=== PATIENT | female | born 1980 | race Caucasian/White ===

== ENCOUNTER 2025-01-10 06:59 | Emergency (ER) | payer BC, SELFPAY ==
[2025-01-10 07:01] VITALS: BP 118/71
--- NOTE | 2025-01-10 07:26 | ED.GENMED ---
History of Present Illness
General
Chief Complaint: Abdominal Symptoms
Source: patient
Exam Limitations: none
Time Seen by Provider: 01/10/25 07:24
Nursing documentation reviewed up to this point in time: agreed with
History of Present Illness
History of Present Illness:
Note:
CHIEF COMPLAINT(S)
Nausea, abdominal discomfort, and anxiety.
HISTORY OF PRESENT ILLNESS
The patient is a 44-year-old female who has been experiencing nausea, abdominal cramping, and a lack of appetite since Saturday. She describes feeling a constant sensation of needing to vomit, although she has not actually vomited. She has also
experienced diarrhea throughout the week, which she initially managed with jetx-itx-xwgwwfe medications such as Imodium and Pepto-Bismol.
The patient recently began experiencing heightened anxiety, which she visited her primary care physician for. She was prescribed a low dose of escitalopram, which she started three days ago. Prior to starting the medication, she had been
experiencing symptoms of anxiety, including sensations of something being stuck in her lower abdomen and intermittent cramping. The patient describes feeling fatigued since starting the medication, despite her physician advising that this was
unlikely.
She reports her symptoms worsen in the morning, feeling particularly unwell and exasperated by her current condition. Additionally, she experienced a sudden wave of nausea after bending over, which did not result in vomiting.
The patient expresses frustration at the persistent symptoms despite attempts at self-care and use of tlco-vpw-bdxmeje medications. She describes her stool as loose, and despite efforts, has not felt relief from her nausea and headaches.
PAST MEDICAL HISTORY
Anxiety with recent initiation of escitalopram therapy.
PAST SURGICAL HISTORY
section. Colonoscopy and endoscopy performed two years ago due to gastrointestinal issues; results were normal.
SOCIAL HISTORY
Denies smoking or illicit drug use. Consumes alcohol infrequently and in moderate amounts.
MEDICATIONS
Currently taking escitalopram for anxiety, started three days ago.
REVIEW OF SYSTEMS
- Gastrointestinal: Nausea, abdominal cramping, reduced appetite, diarrhea described as loose stools.
- Neurological: Headache.
- General: Fatigue, altered sensation in the abdomen.
PHYSICAL EXAM
- Ear, Nose, and Tongue: Normal inspection.
- General: Afebrile, alert, and oriented times three.
- Cardiovascular: Heart sounds S1 and S2 present, no murmurs detected.
- Pulmonary: Unremarkable.
- Integumentary: Moist oral mucosa.
- Abdominal: No indication of diverticulitis or other acute surgical conditions;soft, nontender, nondistended
Nursing notes reviewed and vital signs reviewed.
PROBLEM LIST
Acute:
- Gastrointestinal symptoms: Nausea, diarrhea, abdominal cramping
- Anxiety with recent onset
- Reflux symptoms: burning sensation, frequent burping
PLAN
- Obtain laboratory tests to assess electrolytes and liver function.
- Conduct urinalysis.
- Administer intravenous fluids and collect samples if diarrhea presents.
- Consider differential diagnosis of viral gastroenteritis; monitor for any progression.
- Prescribe a proton pump inhibitor to manage possible reflux symptoms.
DIFFERENTIAL DIAGNOSIS
The Differential Diagnosis includes, in no particular order and is not limited to:
1. Gastroenteritis
2. Anxiety-induced gastrointestinal symptoms
3. Irritable bowel syndrome
4. Gastroesophageal reflux disease (GERD)
5. Medication side effects (escitalopram)
6. Peptic ulcer disease
7. Viral infection
8. Food-borne illness
9. Inflammatory bowel disease
10. Colitis
CARE-UPDATE
01/10/25 - 10:00
Stable lab results; abdomen is soft and non-tender. Discussed options of a CT scan versus deferring imaging until after the gastroenterology follow-up. Decision made not to proceed with a CT scan at this time. Patient assessed as stable for
discharge with a gastroenterology follow-up scheduled for Saturday. Prescriptions for Diltiazem and Protonix provided. Return precautions were communicated to the patient.
Disposition:
SUMMARY OF ENCOUNTER
The patient, a 44-year-old female, presented to the emergency department with nausea, abdominal discomfort, and heightened anxiety. She reported ongoing symptoms since Saturday, including nausea, abdominal cramping, reduced appetite, and diarrhea. The
patient recently began experiencing increased anxiety and started on a low-dose of escitalopram three days ago. After a complete evaluation, the symptoms were suspected to be related to possible viral gastroenteritis, anxiety-induced
gastrointestinal symptoms, and potential medication side effects.
DISPOSITION
The patient was assessed as stable for discharge with a follow-up appointment scheduled with a manager shift on Saturday.
ASSESSMENT
The patients gastrointestinal symptoms may be a result of viral gastroenteritis, side effects of recent medication initiation with escitalopram, and possible anxiety-induced gastrointestinal issues.
PLAN
Obtain laboratory tests to assess electrolytes and liver function. Conduct urinalysis. Prescribe a proton pump inhibitor to manage possible reflux symptoms. Monitor for any progression of symptoms.
FOLLOW-UP INSTRUCTIONS
Follow up with a gastroenterology appointment scheduled for Saturday. Return to the emergency department if symptoms worsen or new symptoms develop.
MEDICATION RECONCILIATION
The patient started escitalopram three days ago, and a proton pump inhibitor, pantoprazole (Protonix), was prescribed.
MEDICAL DECISION MAKING
- Number and Complexity of Problems Addressed: Chronic conditions affecting care [Anxiety with recent initiation of escitalopram therapy, gastrointestinal symptoms]. The differential diagnosis list includes gastroenteritis, anxiety-induced
gastrointestinal symptoms, irritable bowel syndrome, gastroesophageal reflux disease, medication side effects, peptic ulcer disease, viral infection, food-borne illness, inflammatory bowel disease, and colitis.
- Data:
Category 1:
- Non-emergency department records reviewed.
- Lab tests ordered included electrolytes and liver function assessments along with urinalysis.
Category 3:
- Discussion of management with a manager shift resulting in a follow-up appointment for the patient.
- Risk: Prescription medication was prescribed in the form of Protonix for reflux management.
DIAGNOSIS
- Nausea (R11.0)
- Diarrhea (R19.7)
Past History
Past History
ED Past Medical History: None
ED Past Surgical History: (x3)
Social History
Tobacco: Non-smoker
Alcohol: Occasional
Drug: None
Phy Exam
Physical Exam
Physical Exam:
.
Course
Orders/Labs/Results
Orders:
Orders
01/10/25 07:43
IV Insert/Care/Rem.- Treatment PRN
Stool Culture Urgent
GUERA Source: Feces/Stool
Specimen Description:
Pantoprazole [Protonix IV] 40 mg IV NOW STA
01/10/25 07:44
Test Result ONCE
01/10/25 08:05
Complete Blood Count/With Diff Urgent
Comprehensive Metabolic Panel Urgent
Lipase Urgent
01/10/25 08:08
HCG, Urine Qualitative Screen Urgent
Date Specimen was Collected: 01/10/25
Time Specimen was Collected: 08:06
Urinalysis Reflex To Culture Urgent
Date Specimen was Collected: 01/10/25
Time Specimen was Collected: 08:06
Abnormal Lab Results
01/10/25
08:05
WBC 3.1 L 10^3/uL
(4.8-10.8)
RBC 3.43 L 10^6/uL
(4.20-5.40)
Hgb 10.3 L g/dL
(12.0-16.0)
Hct 31.3 L %
(37.0-47.0)
MCHC 32.9 L g/dL
(33.0-37.0)
Absolute Lymphs (auto) 0.6 L 10^3/uL
(1.2-3.4)
Lymphocytes % 18.2 L %
(20.5-51.1)
Monocytes % 9.6 H %
(1.7-9.3)
01/10/25 08:05
01/10/25 08:05
Vital Signs
Initial and Last Documented VS:
Initial Vital Signs
Temp Pulse Resp BP Pulse Ox
98.1 F 69 16 118/71 97
01/10/25 07:01 01/10/25 07:01 01/10/25 07:01 01/10/25 07:01 01/10/25 07:01
Last Documented Vital Signs
Temp Pulse Resp BP Pulse Ox
98.1 F 52 16 106/66 98
01/10/25 07:01 01/10/25 09:00 01/10/25 09:00 01/10/25 09:00 01/10/25 09:00
*Pulse Oximetry
SaO2: 97
Oxygen Mode of Delivery: Room air
Patient hypoxic: no
*Critical Care Note
Total Time (30-74mins, 75-104mins- exclusive of procedures): Not Applicable
ED Attending Note
-
Portions of this chart may have been created with voice recognition software.� Occasional wrong word or��sound alike� substitutions may have occurred due to the inherent limitations of voice recognition software.
Discharge Plan
Departure
Patient Disposition: Home (Routine Discharge)
Date of Disposition: 01/10/25
Time of Disposition: 10:01
Patient with high blood pressure during this ER visit?: No
Condition: Good
Discharge Problem:
Nausea, Diarrhea
Instructions: Diarrhea in teens and adults, Nausea and Vomiting, Adult (DC), Abdominal Pain
Prescriptions:
New
pantoprazole [Protonix] 40 mg tablet,delayed release (DR/EC)
40 mg PO DAILY Qty: 30 0RF
dicyclomine 20 mg tablet
20 mg PO QID PRN (Reason: abdominal discomfort) Qty: 60 0RF
No Action
multivitamin Tablet
2 tab PO DAILY
ascorbic acid (vitamin C) [Vitamin C] 250 mg Tablet,Chewable
500 mg PO DAILY
Culturelle
1 tab PO DAILY
pantoprazole [Protonix] 40 mg tablet,delayed release (DR/EC)
40 mg PO DAILY Qty: 30 0RF
Referrals:
Juliano Brooke DO [Family Provider, Family Practice]
Interventions
Interventions:
*Risk Screen - Suicide Last Done: 01/10/25 08:00
*General Assessment Last Done: 01/10/25 08:00
*Neglect/Abuse Screening Last Done: 01/10/25 08:00
*ED- Fall Risk Assessment Last Done: 01/10/25 08:00
*ED COVID-19 Vaccine History Last Done: 01/10/25 08:00
VB-Xpxtqz-Wjtexmlbmf Assessment Last Done: 01/10/25 08:00
Discharge Date and Time
Print Language: BELARUSIAN
[2025-01-10 08:00] VITALS: BP 110/64; BMI 23.8
[2025-01-10 08:10] LABS: Hematocrit 31.3 % (37.0-47.0); Hemoglobin 10.3 g/dL (12.0-16.0); Mean Corp Hgb Conc. 32.9 g/dL (33.0-37.0); Mean Corpuscular Volume 91.3 fL (81.0-99.0); Nucleated Red Blood Cells % 0 %; Platelet Count 195 10^3/uL (130-400); Red Cell Dist. Width 13.8 % (11.5-14.5)
[2025-01-10] MEDS: PROTONIX IV 40 MG IV (08:22)
[2025-01-10 08:30] LABS: ALT (SGPT) 19 U/L (0-35); AST (SGOT) 26 U/L (14-36); Albumin 4.0 g/dl (3.5-5.0); Alkaline Phosphatase 60 U/L (38-126); Blood Urea Nitrogen 14 mg/dl (7-17); Calcium 8.9 mg/dl (8.4-10.2); Carbon Dioxide 26 mmol/L (22-30); Chloride 106 mmol/L (98-107); Glucose 97 mg/dl (70-99); Lipase 116 U/L (23-300); Potassium 3.8 mmol/L (3.5-5.1); Sodium 138 mmol/L (135-145); Total Protein 6.4 g/dl (6.3-8.2); eGFR > 60.00
[2025-01-10 08:31] LABS: Urine Character Clear (Clear)
[2025-01-10 08:34] LABS: HCG, Urine Qualitative Screen Negative
[2025-01-10 09:00] VITALS: BP 106/66
--- NOTE | 2025-01-10 09:41 | EDRN ---
Pt asked about a CT scan after talking on the phone. Pt has been to [facility] x2 and no BM as of yet.
--- NOTE | 2025-01-10 09:50 | EDRN ---
Dr. Thomas in room w/ pt at this time.
[2025-01-10 10:00] VITALS: BP 112/55
--- NOTE | 2025-01-10 10:20 | EDRN ---
Pt stated at discharge she had a BM in [facility] and dumped it as it was not loose in consistency.
== END 2025-01-10 10:20 | disposition home or self-care (01) ==
LOC: EMR 06:59
PROVIDERS: EMERGENCY PHYSICIAN Emergency Medicine; FAMILY PHYSICIAN Family Medicine
DX: R11.0 Nausea (principal); R19.7 Diarrhea, unspecified; R10.9 Unspecified abdominal pain; F41.9 Anxiety disorder, unspecified
CPT/HCPCS: 99283; 96374; 80053; 81003; 81025; 83690; 85025